=== PATIENT | female | born 1970 | race Caucasian/White ===

== ENCOUNTER 2016-11-19 18:44 | Emergency (ER) | payer BC ==
[2016-11-19 18:56] VITALS: PULSE 71; TEMP 97.9
[2016-11-19] MEDS ORDERED: TDAP ADULT 0.5 ML INJ (BOOSTRIX) IM ONE (20:17)
[2016-11-19] MEDS ORDERED: HYDROCODONE/APAP 5/325 TAB PO ONE (20:26)
--- NOTE | 2016-11-19 20:28 | EDPHY ---
H & P Stated Complaint: Dog bites to L arm and hand. Source: Patient Exam Limitations: No limitations - Personal History Current Tetanus/Diphtheria Vaccine: Unsure Current Tetanus Diphtheria and Acellular Pertussis (TDAP): Unsure - Medical/Surgical History Hx Asthma: No Hx Chronic Respiratory Disease: Yes Hx Diabetes: No Hx Cardiac Disease: No Hx Renal Disease: No Hx Cirrhosis: No Hx Alcoholism: No Hx HIV/AIDS: No Hx Splenectomy or Spleen Trauma: No Other PMH: chronic bronchitis, bipolar, severe anemia, auto immune "problems"- undiagnosed, neuropathy - Social History Smoking Status: Light smoker Time Seen by Provider: 11/19/16 19:32 HPI/ROS: CHIEF COMPLAINT: dog bite HISTORY OF PRESENT ILLNESS: 46-year-old female presents emergency department with a dog bite to her left hand and forearm. Patient is [id number], tetanus is not up-to-date. Patient was breaking up a dog fight between her 2 large 100 lb dogs. She denies numbness or tingling in her arm or hand. She denies other complaints. Animal Control has been contacted. Dog's rabies vaccinations are up-to-date. REVIEW OF SYSTEMS: A comprehensive 10 point review of systems is otherwise negative aside from elements mentioned in the history of present illness. (Kisha Mccormick) - Physical Exam Exam: GEN: Awake, alert, oriented, no acute distress RESP: nl resp effort MSK: Left hand with active flexion and extension of all digits at MCP, PIP and DIP joint, elbow with full range of motion, wrist with full range of motion, sensation intact to light touch, cap refill less than 2 seconds 2+ radial pulses SKIN: 1 cm puncture laceration to dorsal aspect left hand just proximal to middle finger MCP joint, 4 mm puncture to palmar aspect of left hand, multiple other superficial small puncture wounds to dorsal aspect of left hand, 0.5 cm puncture to left forearm 1 on dorsal aspect 1 on volar aspect (Kisha Mccormick) Constitutional: Initial Vital Signs Temperature (C) 36.6 C 11/19/16 18:51 Heart Rate 71 11/19/16 18:51 Respiratory Rate 18 11/19/16 18:51 Blood Pressure 104/71 11/19/16 18:51 O2 Sat (%) 97 11/19/16 18:51 O2 Delivery Mode Room Air Allergies/Adverse Reactions: aspirin Allergy (Unknown, Verified 11/19/16 18:55) Home Medications: Medication Instructions Recorded Amoxicillin/Clavulanate Pot 875 mg PO BID #20 tab 11/19/16 [Augmentin 875Mg] Medical Decision Making - Diagnostics Imaging: Imaging Impressions Hand X-Ray 11/19/16 20:16 Impression: 1. Diffuse soft tissue swelling, with gas in the soft tissues. 2. No fracture or dislocation. 3. No definite gas in the joint spaces. Findings and recommendations discussed with Emergency Department Nurse Practitioner, Kisha Mccormick N.P., at 2044 hours, on November 19, 2016. Final report concurs with initial preliminary interpretation. X-ray independently reviewed by me (Kisha Mccormick) Procedures: A volar Ortho Glass splint was applied. After application of the splint, I returned and re-examined the patient. The splint was adequately immobilizing the joint. The patients circulation and sensation were intact distal to the splint. (Kisha Mccormick) ED Course/Re-evaluation: 9pm-I spoke with Dr. Hurd about this patient. He agrees with plan for splint in antibiotics. He will see the patient in the office tomorrow. Patient was given a tetanus shot today, she is given a Augmentin in the emergency department and 1 to go. With a prescription for more. She is given a 6 pack of [place]. Discussed with the patient the importance of follow-up as I am concerned for infection. Patient agrees with plan. (Kisha Mccormick) Other Provider: PHYSICIAN DOCUMENTATION: The patient was evaluated and managed by the nurse practitioner and myself. I have reviewed the chart and agree with the findings and plan of care as documented. In addition, I examined the patient myself at 2030. History confirmed as bit by her own dog on the left hand. Physical findings as follows: Laceration 1 cm proximal to the MCP joint of the middle finger. Based on location of laceration, physical findings, x-ray I think that joint violation is not likely. Plan for irrigation, dressing, splint, antibiotics, and hand surgery follow-up tomorrow. I am the secondary supervising physician. (Wili Velazquez) - Data Points Medications Given: Discontinued Medications Hydrocodone Bitart/Acetaminophen ([place] 5/325) 1 tab PO EDNOW ONE Stop: 11/19/16 20:27 Last Admin: 11/19/16 20:55 Dose: 1 tab Hydrocodone Bitart/Acetaminophen ([place] 5/325mg Prepack#6) 1 btl TAKEHOME EDNOW ONE Stop: 11/19/16 20:59 Last Admin: 11/19/16 21:31 Dose: 1 btl Amoxicillin/Clavulanate Potassium (Augmentin 875mg) 875 mg PO EDNOW ONE PRN Reason: Protocol Stop: 11/19/16 20:56 Last Admin: 11/19/16 21:33 Dose: 875 mg Amoxicillin/Clavulanate Potassium (Augmentin 875mg) 875 mg PO EDNOW ONE PRN Reason: Protocol Stop: 11/19/16 21:31 Last Admin: 11/19/16 21:33 Dose: 875 mg Diphtheria/Tetanus/Acell Pertussis (Boostrix) 0.5 ml IM .ONCE ONE Stop: 11/19/16 20:18 Last Admin: 11/19/16 20:55 Dose: 0.5 ml Departure - Departure Disposition: Home, Routine, Self-Care Clinical Impression: Dog bite of extremity Condition: Good Instructions: Hydrocodone/Acetaminophen (By mouth), Amoxicillin/Clavulanate Potassium (By mouth), Animal Bite (ED) Additional Instructions: Keep splint clean and dry, follow up with the hand surgeon at 1st available appointment, call in the morning to schedule this. Elevate your hand is much as possible, take 875 mg of Augmentin twice daily for 10 days. Return to the emergency department for pain that is not controlled, fevers, redness that goes up your arm, any other questions or concerns. Take 1 [place] every 4-6 hours for severe pain. This is a narcotic, do not drive or operate any machinery while taking this. Referrals: Eduardo Hurd MD [Medical Doctor] - As per Instructions (hand doctor) Prescriptions: Amoxicillin/Clavulanate Pot [Augmentin 875Mg] 875 mg PO BID #20 tab
[2016-11-19] MEDS ORDERED: AMOXICILLIN/CLAVULANATE POT 875/125 MG TAB PO ONE ×3 (20:55→21:30)
[2016-11-19] MEDS ORDERED: HYDROCOD/APAP 5/325 PREPACK#6 BTL TAKEHOME ONE (20:58)
[2016-11-19 21:46] VITALS: BP 109/71; RESP 16; O2SAT 95
== END 2016-11-19 21:45 | disposition home or self-care (01) ==
DX: S61.452A Open bite of left hand, initial encounter (principal); F17.200 Nicotine dependence, unspecified, uncomplicated; Z23 Encounter for immunization; W54.0XXA Bitten by dog, initial encounter

== ENCOUNTER 2018-12-26 04:43 | Emergency (ER) | payer BC, OTHER ==
[2018-12-26] MEDS ORDERED: IPRATROPIUM/ALBUTEROL 3 ML DEYVIAL IH ONE (05:00)
--- NOTE | 2018-12-26 05:24 | EDPHY ---
H & P Stated Complaint: cough Time Seen by Provider: 12/26/18 04:52 HPI/ROS: HPI The patient presents with cough which has been present for the last 5 days which has become progressively worse. It mostly occurs at night initially was nonproductive, however now is productive of a yellow-green sputum.. She has had rhinorrhea with this. She has not had any shortness of breath or wheezing. She reports some sick contacts. She has not had any fever or chills. She has tried Mucinex and honey without much relief.. REVIEW OF SYSTEMS 10 systems were reviewed and negative with the exception of the elements mentioned in the history of present illness. PMHx: Remote history of bronchitis Soc Hx: Smokes 2 cigarettes a day PHYSICAL General Appearance: Alert, no distress Eyes: Pupils equal and round no pallor or injection ENT, Mouth: Mucous membranes moist Respiratory: There are no retractions, lungs are clear to auscultation Cardiovascular: Regular rate and rhythm Gastrointestinal: Abdomen is soft and non-tender, no masses, bowel sounds normal Neurological: A&O, moves all extremities Skin: Warm and dry, no rashes Musculoskeletal: Neck is supple non tender Extremities: symmetrical, full range of motion Psychiatric: Patient is oriented X 3, there is no agitation Source: Patient Exam Limitations: No limitations - Personal History LMP (Females 10-55): 8-14 Days Ago Current Tetanus Diphtheria and Acellular Pertussis (TDAP): Yes - Medical/Surgical History Hx Asthma: No Hx Chronic Respiratory Disease: Yes Hx Diabetes: No Hx Cardiac Disease: No Hx Renal Disease: No Hx Cirrhosis: No Hx Alcoholism: No Hx HIV/AIDS: No Hx Splenectomy or Spleen Trauma: No Other PMH: chronic bronchitis, bipolar, severe anemia, auto immune "problems"- undiagnosed, neuropathy - Social History Smoking Status: Light smoker Constitutional: Initial Vital Signs Temperature (C) 36.8 C 12/26/18 04:46 Heart Rate 84 12/26/18 04:46 Respiratory Rate 18 12/26/18 04:46 Blood Pressure 114/77 12/26/18 04:46 O2 Sat (%) 95 12/26/18 04:46 O2 Delivery Mode Room Air Allergies/Adverse Reactions: aspirin Allergy (Unknown, Verified 12/26/18 04:46) Home Medications: Medication Instructions Recorded Benzonatate [Tessalon Pearles (RX)] 100 mg PO Q6H PRN #20 cap 12/26/18 Medical Decision Making - Diagnostics Imaging Results: Chest x-ray two view shows peribronchial thickening, no infiltrate, no cardiomegaly, interpreted by me, radiology interpretation is pending. Imaging: I viewed and interpreted images myself Differential Diagnosis: 48-year-old female with history of smoking in bronchitis presents with productive cough for the last 5 days, worse at night. Here, she is generally well-appearing, not hypoxic or tachypneic. Plan for trial of DuoNeb, chest x- ray. Patient felt slightly better after DuoNeb. Chest x-ray showed peribronchial thickening. I suspect she has an upper respiratory tract infection. I have considered pneumonia, pulmonary embolism, however I feel these are much less likely. Patient will be discharged with albuterol, Kaylansalbronson Gudino. I have discussed return precautions with her. - Data Points Medications Given: Discontinued Medications Albuterol Sulfate (Proventil Inh Prepack) 1 mdi TAKEHOME EDNOW ONE Stop: 12/26/18 05:59 Last Admin: 12/26/18 06:11 Dose: 1 mdi Albuterol/Ipratropium (Duoneb) 3 ml IH EDNOW ONE Stop: 12/26/18 05:01 Last Admin: 12/26/18 05:04 Dose: 3 ml Benzonatate (Tessalon Pearles) 200 mg PO EDNOW ONE Stop: 12/26/18 05:59 Last Admin: 12/26/18 06:11 Dose: 200 mg Departure - Departure Disposition: Home, Routine, Self-Care Clinical Impression: Cough Upper respiratory infection Qualifiers: URI type: unspecified viral URI Qualified Code(s): J06.9 - Acute upper respiratory infection, unspecified Condition: Good Instructions: Albuterol (By breathing), Acute Cough (ED) Additional Instructions: Please follow-up with your primary care doctor if you're not better in 2 days. Please return to the emergency department if your worse in any way. Referrals: Cody Arriaga MD [Primary Care Provider] - As per Instructions Prescriptions: Benzonatate [Tessalon Pearles (RX)] 100 mg PO Q6H PRN #20 cap PRN Reason: Cough, Mild
[2018-12-26] MEDS ORDERED: BENZONATATE 100 MG CAP PO ONE (05:58)
[2018-12-26] MEDS ORDERED: ALBUTEROL INH PREPACK MDI TAKEHOME ONE (05:58)
[2018-12-26 06:19] VITALS: BP 100/72
== END 2018-12-26 06:17 | disposition home or self-care (01) ==
DX: J06.9 Acute upper respiratory infection, unspecified (principal); F17.200 Nicotine dependence, unspecified, uncomplicated